=== PATIENT | male | born 1935 | race Caucasian/White ===

== ENCOUNTER 2017-07-29 09:36 | Emergency (ER) | payer MEDICARE, MEDICAID ==
[~2017-07-29] VITALS: Ht 167.6 cm; Wt 75.0 kg
[2017-07-29] MEDS ORDERED: FOLI0.8T22 PO (09:48)
[2017-07-29] MEDS ORDERED: ROSU10 PO (09:48)
[2017-07-29] MEDS ORDERED: WARF1 PO (09:48)
[2017-07-29] MEDS ORDERED: MVITFE PO (09:48)
[2017-07-29] MEDS ORDERED: TIMO.5OS OU (09:48)
[2017-07-29] MEDS ORDERED: BRIM5DRO11 OU (09:48)
[2017-07-29] MEDS ORDERED: MIDO2.5T10 PO (09:48)
[2017-07-29] MEDS ORDERED: FOLI1 PO (09:48)
[2017-07-29] MEDS ORDERED: HYDR-4061 PO (09:48)
[2017-07-29 11:22] LABS: BASOPHILS % (AUTO) 0.4 % (0.0-2.0); EOSINOPHILS % (AUTO) 2.2 % (1.0-6.0); HEMATOCRIT 32.8 % (41-53); HEMOGLOBIN 11.2 g/dL (13.5-17.5); LYMPHOCYTES # (AUTO) 1.1 K/uL (1.0-4.8); LYMPHOCYTES % (AUTO) 13.4 % (22.0-44.0); MEAN CORPUSCULAR HEMOGLOBIN 35.6 pg (26.0-34.0); MEAN CORPUSCULAR HGB CONC 34.2 G/dL (31.0-37.0); MEAN CORPUSCULAR VOLUME 104 fL (80-100); MONOCYTES # (AUTO) 0.6 K/uL (0.1-1.0); MONOCYTES % (AUTO) 8.1 % (2.0-9.0); NEUTROPHILS # (AUTO) 6.1 K/uL (1.8-7.7); NEUTROPHILS % (AUTO) 75.9 % (40.0-70.0); PLATELET COUNT (AUTO) 114 K/uL (150-450); RED BLOOD CELL COUNT(AUTO) 3.15 MIL/uL (4.50-5.90); RED CELL DISTRIBUTION WIDTH 15.6 % (11.5-14.5)
[2017-07-29 11:31] LABS: CALCIUM, TOTAL 8.8 mg/dL (8.8-10.5); CREATININE 5.74 mg/dL (0.60-1.30); POTASSIUM 5.1 mmol/L (3.5-5.1)
[2017-07-29 11:36] LABS: ALBUMIN 3.1 g/dL (3.4-5.0); BILIRUBIN,TOTAL 0.6 mg/dL (0.1-1.0); TOTAL PROTEIN, SERUM 6.7 g/dL (6.4-8.2)
[2017-07-29] MEDS ORDERED: FUROSEMIDE 40 MG/4 ML VIAL IVP ONE (12:15)
[2017-07-29 12:25] VITALS: BP 172/83
== END 2017-07-29 13:02 | disposition home or self-care (01) ==
LOC: EMS 09:37
DX: J06.9 Acute upper respiratory infection, unspecified (principal); R10.13 Epigastric pain; N18.6 End stage renal disease; Z99.2 Dependence on renal dialysis
CPT/HCPCS: 71045; 80053; 83690; 83880; 84484; 85025; 93005; 96374; 99285; J1940